=== PATIENT | female | born 1995 | race Caucasian/White ===

== ENCOUNTER 2024-06-20 02:02 | Inpatient (IN) | payer OTHER ==
[2024-06-20] MEDS: Lactated Ringer's 1,000 ML IV SCH (02:45)
[2024-06-20 02:56] LABS: Hematocrit 36.2 % (34.9-44.5); Hemoglobin 11.9 g/dL (12.0-15.5); Mean Corpuscular HGB CONC 32.9 g/dL (32.0-36.0); Mean Corpuscular Hemoglobin 28.5 pg (27.0-33.0); Mean Corpuscular Volume 86.6 fL (81.6-98.3); Mean Platelet Volume 9.7 fL (7.4-10.4); Platelet Count 299 10x3/uL (150-450); RBC Distribution Width 14.6 % (11.5-14.5); Red Blood Cell (RBC) Count 4.18 10x6/uL (3.90-5.03); White Blood Cell (WBC) Count 9.08 10x3/uL (3.5-10.5)
[2024-06-20] MEDS ORDERED: hydrALAZINE 20 MG/ML VIAL SLOW IVP PRN (03:00)
[2024-06-20] MEDS ORDERED: Methylergonovine 0.2 MG/ML VIAL IM PRN (03:00)
[2024-06-20] MEDS ORDERED: Carboprost 250 MCG/ML AMP IM PRN (03:00)
[2024-06-20] MEDS ORDERED: Acetaminophen 500 MG TAB PO PRN (03:00)
[2024-06-20] MEDS ORDERED: Ondansetron PF 4 MG/2 ML Vial IVP PRN ×2 (03:00→03:37)
[2024-06-20] MEDS ORDERED: Promethazine HCl 25 MG/ML VIAL IM PRN ×2 (03:00→03:37)
[2024-06-20] MEDS ORDERED: Diphenoxylate HCl/Atropine Tablet PO PRN (03:00)
[2024-06-20] MEDS ORDERED: fentaNYL 50 mcg/mL 1 mL Vial SLOW IVP PRN (03:00)
[2024-06-20] MEDS ORDERED: Tranexamic Acid 1,000 MG/10 ML VIAL IVP PRN (03:00)
[2024-06-20] MEDS ORDERED: Misoprostol 200 MCG TAB RC PRN (03:00)
[2024-06-20] MEDS ORDERED: Oxytocin 30 units/NS 500 ML 500 ML IV SCH (03:00)
[2024-06-20 03:12] VITALS: BMI 32.5
[2024-06-20] MEDS ORDERED: HYDROcodone/Acetaminophen 5/325 mg Tablet PO PRN ×2 (03:15→14:36)
[2024-06-20] MEDS ORDERED: Ibuprofen 800 MG TAB PO PRN (03:15)
[2024-06-20] MEDS: fentaNYL/Ropivacaine Epidural 100 ML ONE (03:17)
[2024-06-20 03:31] LABS: HBsAg Index 0.18 S/CO (0-0.99); Hep B Surf Ag - L&D Non-Reactive S/CO (NonReactive)
[2024-06-20 03:32] LABS: Syphilis Antibody Nonreactive (Nonreactive); Syphilis Antibody Index 0.07 S/CO (<1.00 Non-Reactive)
[2024-06-20] MEDS ORDERED: ePHEDrine Sulfate 50 MG/10 ML VIAL SLOW IVP PRN (03:37)
[2024-06-20] MEDS ORDERED: Acetaminophen 325 MG TAB PO PRN (03:37)
[2024-06-20] MEDS ORDERED: Naloxone HCl 0.4 mg/ml Vial IVP PRN ×2 (03:37)
[2024-06-20] MEDS ORDERED: diphenhydrAMINE 50 MG/ML VIAL IVP PRN (03:37)
[2024-06-20] MEDS ORDERED: Moisturizing Cream (Eucerin) 113 GM JAR TOP PRN (03:37)
[2024-06-20] MEDS ORDERED: Lactated Ringer's 500 ML IV PRN (03:37)
[2024-06-20] MEDS ORDERED: Communication Order-Pharmacy FS SCH (03:45)
[2024-06-20] MEDS ORDERED: fentaNYL 2 mcg/Ropivacaine 0.2% Epidural 100 ML CADD EPIDURAL SCH (03:45)
[2024-06-20] MEDS ORDERED: Bupivacaine/Epinephrine 0.25% 30 ML VIAL ONE (10:00)
[2024-06-20] MEDS: Oxytocin 30 units/NS 500 ML 500 ML ONE (12:02)
[2024-06-20] MEDS ORDERED: Milk Of Magnesia 30 ML UDCUP PO PRN (13:47)
[2024-06-20] MEDS ORDERED: Bisacodyl 10 MG SUPP PR PRN (13:47)
[2024-06-20] MEDS: Boostrix 0.5 ML (Tdap) VIAL (>/=7 yrs of age) IM ONE (14:12)
[2024-06-20] MEDS: Ferrous Sulfate 325 MG TAB PO SCH (14:34)
[2024-06-20] MEDS: Ibuprofen 800 MG TAB PO PRN (14:43)
[2024-06-20] MEDS: HYDROcodone/Acetaminophen 5/325 mg Tablet PO PRN (14:44)
[2024-06-20] MEDS: Benzocaine-Menthol 82.5 ML CAN TOP PRN (17:40)
[2024-06-20] MEDS: Docusate 100 MG CAP PO SCH (19:44)
[2024-06-21] MEDS: Prenatal Vitamin 1 TAB PO SCH (09:40)
[2024-06-22 08:00] VITALS: BP 105/63; TEMP 98.2
== END 2024-06-22 12:35 | disposition home or self-care (01) | DRG 807 ==
LOC: CSHLD/OP 02:02 → CSHLD 02:37 → CSHPP 13:57
PROVIDERS: ADMIT Obstetrics & Gynecology; ATTEND Obstetrics & Gynecology
PROC: 10E0XZZ Delivery of Products of Conception, External Approach (ICD-10-PCS; principal; 2024-06-20)
PROC: 0KQM0ZZ Repair Perineum Muscle, Open Approach (ICD-10-PCS; 2024-06-20)
PROC: 3E0S3BZ Introduction of Anesthetic Agent into Epidural Space, Percutaneous Approach (ICD-10-PCS; 2024-06-20)
DX: O42.12 Full-term premature rupture of membranes, onset of labor more than 24 hours following rupture (principal); Z37.0 Single live birth; Z3A.40 40 weeks gestation of pregnancy; O48.0 Post-term pregnancy; O70.1 Second degree perineal laceration during delivery
CPT/HCPCS: 36415; 51702; 85027; 86780; 86850; 86900; 86901; 87340; 99285; J2590; J7120